=== PATIENT | female | born 1950 | race Caucasian/White ===

== ENCOUNTER → 2018-06-17 15:00 | Outpatient (CLI) | payer BC, SELFPAY | PROVIDERS: Visit Provider Obstetrics & Gynecology | DX: N89.8 Other specified noninflammatory disorders of vagina (principal) | CPT/HCPCS: 87070; 87205 ==

== ENCOUNTER → 2019-02-17 15:00 | Outpatient (CLI) | payer BC, SELFPAY ==
--- NOTE | 2019-02-17 15:03 | BI_ITS ---
MAMMOGRAPHY - BILATERAL SCREENING REASON FOR EXAM: Female, 68 years old. Routine annual screening examination. PERTINENT HISTORY: Non-contributory. TECHNIQUE: Digital bilateral breast marlena (3D mammographic acquisition) in the CC and MLO projections. 2-D mediolateral oblique (MLO) and craniocaudad (CC) views of both breasts were obtained. CAD: Full Field Digital Mammography with Computer Added Detection was performed. COMPARISON: Comparison is made with prior outside examination dated May 08, 2008. FINDINGS: Breast Composition: There are scattered areas of fibroglandular density. There are no dominant masses or suspicious calcifications. No other significant abnormalities are identified. There has been no significant change since the prior study. BI/SCREENING MAMM (CAD), BILAT IMPRESSION: Stable bilateral screening mammogram. Yearly follow-up mammogram recommended. (A) ASSESSMENT CATEGORY: BIRADS Category 1: Negative. A letter regarding these results will be sent to the patient by the facility within 30 days. Approximately 10% of breast cancers are not detected by mammography. A normal mammogram should not delay biopsy of a clinically suspicious abnormality. [id number] Electronically Signed: Gerardo Zavala, at 8:28 EDT , Service support ,
== END ==
PROVIDERS: Family Provider Family Medicine; PCP Family Medicine; Visit Provider Obstetrics & Gynecology
DX: Z12.31 Encounter for screening mammogram for malignant neoplasm of breast (principal)
CPT/HCPCS: 77063; 77067

== ENCOUNTER → 2019-10-09 09:17 | Outpatient (CLI) | payer BC, SELFPAY ==
[2019-10-09 09:15] VITALS: BMI 25.4
--- NOTE | 2019-10-09 09:18 | RAD_ITS ---
STUDY: X-RAY - RIGHT SHOULDER REASON FOR EXAM: Shoulder pain. TECHNIQUE: 4 view(s) of the shoulder. COMPARISON: None. FINDINGS: Normal glenohumeral articulation. There is mild acromioclavicular arthrosis. Normal acromion. Normal humeral head and visualized proximal humerus. The soft tissue structures are unremarkable. Normal visualized pulmonary apex. RAD/Shoulder min 2 Views IMPRESSION: Mild acromioclavicular arthrosis. Electronically Signed: Joshua Eid MD at 14:29 EST Tel , Service support ,
== END ==
PROVIDERS: Family Provider Family Medicine; PCP Family Medicine; Referring Provider Orthopaedic Surgery; Visit Provider Orthopaedic Surgery
DX: M25.511 Pain in right shoulder (principal)
CPT/HCPCS: 73030

== ENCOUNTER 2020-04-17 19:03 | Emergency (ER) | payer BC, SELFPAY ==
[2020-04-17 19:03] VITALS: BMI 22.8
[2020-04-17 19:07] VITALS: BP 161/90; PULSE 90; RESP 18; TEMP 35.6; O2SAT 96; BMI 28.6
[2020-04-17 19:14] VITALS: BP 161/90; PULSE 90; RESP 18; TEMP 35.6; O2SAT 96
--- NOTE | 2020-04-17 19:29 | EKG12_ITS ---
Test Reason : SYNCOPE Blood Pressure : / mmHG Vent. Rate : 088 BPM Atrial Rate : 088 BPM P-R Int : 192 ms QRS Dur : 084 ms QT Int : 358 ms P-R-T Axes : 072 048 027 degrees QTc Int : 433 ms Normal sinus rhythm Nonspecific ST and T wave abnormality Abnormal ECG Confirmed by PETRONA VILLAGRAN, JL ([id number]), editor book GOLDIE CHRISTIANSON ([id number]) on 04/22/2020 10:57:07 AM Referred By: MAURICIO Confirmed By:JL RUSS MD
--- NOTE | 2020-04-17 19:29 | RAD_ITS ---
STUDY: X-RAY - LEFT WRIST REASON FOR EXAM: Female, 70 years old. Fall, pain to palm of hand. TECHNIQUE: 3 view(s) of the wrist were obtained. COMPARISON: None. FINDINGS: There is a nondisplaced transverse fracture of the distal radial metaphysis. Normal radiocarpal articulation. Normal distal radioulnar articulation. Normal carpal bones. Normal carpal articulations. There are mild degenerative changes of the first metacarpal greater multangular joint. Normal second through fifth carpometacarpal articulations. Normal visualized metacarpal bones. The soft tissue structures are unremarkable. RAD/Wrist min 3 Views IMPRESSION: Nondisplaced transverse fracture of the distal radial metaphysis. Mild degenerative changes of the first metacarpal greater multangular joint. Electronically Signed: Rogelio Garcia MD at 21:50 EDT , Service support ,
--- NOTE | 2020-04-17 19:29 | CT_ITS ---
STUDY: CT BRAIN WITHOUT CONTRAST REASON FOR EXAM: Female, 70 years old. SYNCOPE RADIATION DOSAGE (If Supplied By Facility): CTDIvol = ( 60.81 ) mGy, DLP = ( 998.67 ) mGycm TECHNIQUE: Transaxial CT imaging of the brain was performed without administration of intravenous contrast material. Individualized dose optimization techniques were used for this CT. COMPARISON: Previous study of 01/19/2011 FINDINGS: Normal soft tissue structures. Normal calvarium. There is mild cerebral atrophy with widening of the extra-axial spaces and ventricular dilatation. There are areas of decreased attenuation within the white matter tracts of the supratentorial brain, consistent with microvascular disease changes. There is an old lacunar infarct of the right insular lobe, stable in the interval. Normal basal ganglia and thalami. Normal brainstem. Normal cerebellum. There is no intracranial hemorrhage. There are no findings of an acute ischemic infarction. Normal visualized paranasal sinuses. CT/Brain/Head without Contrast IMPRESSION: Chronic involutional changes of the brain. 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 There is no evidence of intracranial hemorrhage or acute infarct. Electronically Signed: Rogelio Garcia MD at 21:57 EDT , Service support ,
--- NOTE | 2020-04-17 19:35 | ED.VISSUMM ---
- ER Visit Summary Date of Service: 04/17/20 Chief Complaint: Fall History of Present Illness: The patient is a 70 F who presents after a fall that occurred today. Patient was in her exercise class when she fell. Patient states that after she fell she became dizzy and lightheaded. Patient does not think she hit her head. Patient does not think she had any loss of consciousness. Upon EMS arrival they noted the patient to be pale and diaphoretic. Patient states she is feeling better now. Patient still admits to some lightheadedness and dizziness. Patient denies any recent fevers or chills. Patient has been having some nausea and vomiting since she fell. Patient complains of pain over her left wrist. Patient denies any other injuries. Physical Examination: Vital signs are stable. Patient is afebrile. Patient is in no acute distress. Pupils are equal, round, and reactive to light bilaterally. Extraocular muscles are intact. There is no nystagmus noted. Conjunctiva is clear. Tympanic membranes are clear bilaterally. Neck is supple. Trachea is midline. There is no JVD. Heart was regular rate and rhythm. Lungs are clear and equal bilaterally. Abdomen is soft and nontender. Extremities are intact. There is tenderness over the left wrist. Radial pulses are equal bilaterally. Sensation was intact to light touch in the radial, median, and ulnar areas. Strength is 5/5 in the radial, median, and ulnar areas. Range of motion was slightly limited in all motions of the left wrist secondary to pain. Test Results: EKG showed normal sinus rhythm with a rate of 88. There are nonspecific ST-T wave changes. These were unchanged compared to previous EKG dated 12/18/2003. CT scan of the brain was obtained. There are chronic changes but no acute intracranial abnormality. This was interpreted by the radiologist and reviewed by myself. X-rays of the left wrist were obtained. There is nondisplaced fracture of the distal radius. These were also interpreted by the radiologist and reviewed by myself. CBC was normal. Basic metabolic profile showed a mild hypokalemia of 3.0. Urinalysis does not show any evidence of urinary tract infection. Troponin was normal. Orthostatic vital signs were normal. Emergency Department Course and Treatment: Patient was given IV fluids. Patient was given a dose of Zofran and meclizine here. Patient was feeling better on reevaluation. Patient was advised of her findings. Patient was given a dose of oral potassium here. Patient declined analgesics at this time. Patient also declined a prescription for analgesics. Patient was placed in a well-padded short arm volar splint. Neurovascular exam was intact prior to and after placing the patient in a volar splint. Patient was instructed to follow-up with her primary care physician in 5 to 7 days. Patient was also given a referral to Dr. Hardwick for orthopedic care. Patient was instructed to return if worse in any way. Patient understood and was agreeable with the plan. All questions were answered. Disposition: Discharge home Impression: 1. Left distal radius fracture 2. Dizziness, likely secondary to #1 This note was generated with [employer] dictation software. It may contain incorrect words, spelling, and punctuation that were not noted in review of the chart prior to signing ED Disposition - Plan for ED Patient: Disposition: Home or Assisted Living Diagnosis: Fracture of left distal radius, Dizziness Instructions: ED Forearm Fracture without Reduction Referrals: Amita Solano MD [Primary Care Provider] - 5-7 Days Erika Gong DO [STAFF PHYSICIAN] - 3-5 Days
[2020-04-17] MEDS: 0.9% Normal Saline 1,000 ML 1000 ML IV (19:37)
[2020-04-17] MEDS: Ondansetron 4 MG/2 ML Vial IV (19:37)
[2020-04-17 19:50] LABS: Basophil# 0.03 X10^3/uL; Basophil% 0.5 % (0-1); Eosinophil# 0.05 X10^3/uL; Eosinophils% 0.9 % (0-5); Hematocrit 38.5 % (37-47); Hemoglobin 12.9 g/dL (12.0-15.0); Lymphocyte % 53.7 % (19-41); Mean Corp Hgb Conc 33.5 g/dL (32-36); Mean Corpuscular Hgb 31.5 pg (27.0-32.0); Mean Corpuscular Volume 93.9 fL (81-99); Mean Platelet Vol. 10.2 fl (6.2-12.0); Monocyte# 0.59 X10^3/uL; Monocyte% 10.2 % (0-10); NRBC Flagged by Analyzer 0 % (0-5); Neutrophil # 1.97 X10^3/uL (2.7-7.7); Neutrophil % 34.2 % (47-70); Platelet Count 285 K/mm3 (150-450); RBC Distribution Width CV 12.2 % (11.6-14.6); White Blood Count 5.8 K/mm3 (4.4-11.0)
[2020-04-17] MEDS: Meclizine HCl 25 MG Tablet PO (19:53)
[2020-04-17 20:14] VITALS: BP 136/89; BP 140/67; BP 157/106; PULSE 88; PULSE 93
[2020-04-17 20:18] VITALS: BP 140/67; PULSE 93; RESP 16; TEMP 36.3; O2SAT 96
[2020-04-17 20:23] LABS: ALB/GLOB Ratio 1.2 RATIO (0.9-2.4); AST(SGOT) 22 U/L (15-37); Alanine Aminotransfer ALT/SGPT 23 U/L (13-56); Alkaline Phosphatase 59 U/L (45-117); Anion Gap 9 (5-15); BUN 14 mg/dL (7-18); BUN/Creat Ratio 20.1 RATIO (10-20); Calcium,Total 10.1 mg/dL (8.5-10.1); Chloride 105 mmol/L (98-107); EST Glomerular Filtration Rate 89 mL/min (>60); Est Glom Filt Rate - Afr Amer 107 mL/min (>60); Estimated Creatinine Clearance 40.07 ml/min; Globulin 3.3 g/dL (2.2-4.2); Glucose 123 mg/dL (74-106); Protein, Total 7.3 g/dL (6.4-8.2); Sodium Level 138 mmol/L (136-145)
[2020-04-17 21:27] LABS: Bacteria 0 SEEN /hpf (None Seen); Mucous, Urine 0 SEEN /hpf (<or=2+); Red Blood Cells-Urine 0 SEEN /hpf (0-5); Squamous Epithelial Cells - UA 0 SEEN /hpf (5-10); White Blood Cells 0 SEEN /hpf (0-5)
[2020-04-17 21:38] LABS: Color, Urine Straw (Yellow); Glucose, Dipstick Normal (Normal); Ketone-Dipstick 15 mg/dl (Negative); Leukocyte Esterase-Dipstick 25 /ul (Negative); Nitrite-Dipstick Negative (Negative); Occult Blood-Urine Negative /ul (Negative); Protein-Dipstick Negative (Negative); Urine Bilirubin Dipstick Negative (Negative); Urine Clarity Clear (Clear); Urine Urobilinogen Normal (Normal)
[2020-04-17 23:07] VITALS: BP 157/85; PULSE 72; PULSE 73; RESP 16; O2SAT 97
== END 2020-04-17 23:17 | disposition home or self-care (01) ==
PROVIDERS: Emergency Provider Emergency Medicine; PCP Family Medicine
DX: S52.502A Unspecified fracture of the lower end of left radius, initial encounter for closed fracture (principal); W19.XXXA Unspecified fall, initial encounter
CPT/HCPCS: 29125; 70450; 73110; 80053; 81001; 84484; 85025; 93005; 96361; 96374; 99285; J7030; J2405

== ENCOUNTER → 2020-04-24 08:36 | Outpatient (CLI) | payer BC, SELFPAY ==
[2020-04-19 08:01] VITALS: BMI 28.6
--- NOTE | 2020-04-24 08:36 | RAD_ITS ---
STUDY: X-RAY - LEFT WRIST REASON FOR EXAM: Female, 70 years old. POST CAST REMOVAL TECHNIQUE: 3 view(s) of the wrist were obtained. COMPARISON: 04/17/2020 FINDINGS: No significant interval change in the appearance of the previously noted fracture in the distal radius. Persistent fracture lucency and cortical irregularity noted suggesting complete osseous union has yet to occur. Alignment and positioning are unchanged from the previous study. Normal visualized distal ulna. Normal radiocarpal articulation. Normal distal radioulnar articulation. Normal carpal bones. Normal carpal articulations. Normal carpometacarpal articulation of the thumb. Normal second through fifth carpometacarpal articulations. Normal visualized metacarpal bones. The soft tissue structures are unremarkable. RAD/Wrist min 3 Views IMPRESSION: Previously described distal radial fracture is unchanged from the previous study. Continued follow-up recommended to assure osseous union Electronically Signed: Ganesh Rey MD at 9:01 EDT , Service support ,
== END ==
PROVIDERS: PCP Family Medicine; Referring Provider Orthopaedic Surgery; Visit Provider Orthopaedic Surgery
DX: S52.592A Other fractures of lower end of left radius, initial encounter for closed fracture (principal)
CPT/HCPCS: 73110

== ENCOUNTER → 2020-05-03 08:20 | Outpatient (CLI) | payer BC, SELFPAY ==
[2020-05-03 07:52] VITALS: BMI 28.6
--- NOTE | 2020-05-03 08:21 | RAD_ITS ---
STUDY: X-RAY - LEFT WRIST REASON FOR EXAM: Female, 70 years old. CAST REMOVAL TECHNIQUE: 3 view(s) of the wrist were obtained. COMPARISON: 04/17/2020. FINDINGS: Stable appearance of a subtle transverse fracture across the distal radial metaphysis. No definite new bone formation or definite interval healing. Fracture is in anatomic alignment and position. Otherwise normal visualized distal radius and ulna. Normal radiocarpal articulation. Normal distal radioulnar articulation. Normal carpal bones. Normal carpal articulations. There is mild degenerative arthrosis of the carpometacarpal articulation of the thumb. Normal second through fifth carpometacarpal articulations. Normal visualized metacarpal bones. The soft tissue structures are unremarkable. RAD/Wrist min 3 Views IMPRESSION: Stable appearance of a subtle transverse fracture across the distal radial metaphysis. Electronically Signed: Patrice Dumont MD at 16:55 EDT , Service support ,
== END ==
PROVIDERS: PCP Family Medicine; Referring Provider Orthopaedic Surgery; Visit Provider Orthopaedic Surgery
DX: S52.592A Other fractures of lower end of left radius, initial encounter for closed fracture (principal)
CPT/HCPCS: 73110

== ENCOUNTER → 2020-05-22 08:27 | Outpatient (CLI) | payer BC, SELFPAY ==
[2020-05-03 07:52] VITALS: BMI 28.6
--- NOTE | 2020-05-22 08:27 | RAD_ITS ---
STUDY: X-RAY - LEFT WRIST REASON FOR EXAM: Female, 70 years old. FX FOLLOW UP, CAST REMOVAL TECHNIQUE: 3 view(s) of the wrist were obtained. COMPARISON: 05/03/2020 FINDINGS: There is an old healed impacted fracture of the distal radius. Normal ulna Normal radiocarpal articulation. Normal distal radioulnar articulation. Normal carpal bones. Normal carpal articulations. Normal carpometacarpal articulation of the thumb. Normal second through fifth carpometacarpal articulations. Normal visualized metacarpal bones. The soft tissue structures are unremarkable. RAD/Wrist min 3 Views IMPRESSION: Old healed fracture of distal radial shaft Electronically Signed: Dany Almeida MD at 22:10 EDT , Service support ,
== END ==
PROVIDERS: PCP Family Medicine; Referring Provider Orthopaedic Surgery; Visit Provider Orthopaedic Surgery
DX: S52.592A Other fractures of lower end of left radius, initial encounter for closed fracture (principal)
CPT/HCPCS: 73110

== ENCOUNTER → 2022-04-10 | Outpatient (CLI) | payer BC, SELFPAY ==
--- NOTE | 2022-04-10 08:05 | MRI_ITS ---
STUDY: MRI BRAIN WITH AND WITHOUT CONTRAST (ATTENTION INTERNAL AUDITORY CANALS - I.A.C.''s) REASON FOR EXAM: Female, 72 years old. Asymmetric hearing loss on the right TECHNIQUE: Standardized multiplanar fat and water weighted pulse sequences were obtained. ml of 13ml Dotarem contrast material was administered intravenously for the contrast portion of the examination. COMPARISON: Head CT dated April 17, 2020 FINDINGS: Normal bilateral temporal bones. Normal bilateral internal auditory canals. There is no demonstrated intracanalicular or cisternal vestibular schwannoma (acoustic neuroma). There is no enhancement of the bilateral VIIth or VIIIth cranial nerves. Normal bilateral cochlea, vestibules and semicircular canals. Normal visualized mastoid air cells. No visualized cerebellar pontine angle mass or cyst. There is no evidence of a Mondini''s malformation. There is mild cerebral atrophy with widening of the extra-axial spaces and ventricular dilatation. There are a limited number of small white matter hyperintensities, distributed throughout the deep white matter tracts of the cerebral hemispheres, consistent with mild chronic white matter ischemic changes. There is no evidence for recent intracranial ischemia or other cause of cytotoxic edema on diffusion weighted imaging (DWI). Normal T2* images of the brain without demonstrated susceptibility artifact. There is no demonstrated hemosiderin stain. Prominent lentiform nucleus perivascular space on the right. Normal bilateral basal ganglia. Normal thalami. Normal flow voids within the major intracranial circulation suggesting patency by spin echo criteria. Normal venous enhancement. There is no enhancing intra-axial or extra-axial abnormality. There is no extra-axial fluid accumulation. Normal sella turcica, pituitary gland, infundibular stalk, optic chiasm and hypothalamus. Normal tectal plate and pineal gland. Normal midbrain, tom and medulla. Normal cerebellum. Normal basal cisterns. No demonstrated orbital abnormality, within the constraints of a routine brain study. Normal visualized paranasal sinuses. Normal calvarium and skull base. Normal visualized soft tissue structures. Normal visualized upper cervical spine. MRI/Brain W/WO Contrast IMPRESSION: 1. Normal unenhanced and enhanced MRI of the bilateral internal auditory canals (I.A.C''s). 2. Involutional changes of the brain, as described above. Electronically Signed: Marvel John MD at 14:49 EDT ,
[2022-04-10 14:41] LABS: CREATININE FINGERSTICK < 0.9 mg/dL (0.55-1.02); EGFR FINGERSTICK > 60.0000 mL/min (>60)
== END | disposition home or self-care (01) ==
PROVIDERS: PCP Family Medicine; Referring Provider Otolaryngology; Visit Provider Otolaryngology
DX: H90.3 Sensorineural hearing loss, bilateral (principal)
CPT/HCPCS: 70553; A9575

== ENCOUNTER 2022-04-17 10:30 | Outpatient (RCR) | payer BC, SELFPAY ==
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
--- NOTE | 2022-07-14 12:37 | HP.PT.NRP ---
CLEVELAND BURR was seen in my office for initial evaluation on 03/27/22. The following Plan of Care was established for this patient: Initial Frequency: 1x/Week Initial Duration: 6 Weeks Patient/Client Instruction: Educate patient on: Condition, Plan of Care, Risk Factors For the Purpose of:: To improve self management Therapeutic Exercise to Include: Strength training, Flexibilty training, Neuromotor development, Dynamic Lumbar Stabilization For the Purpose of:: To decrease pain, To increase ROM, To improve muscle performance and motor function, To increase tolerance to activity/condition/position, To improve ability of physical actions for home/community/work/leisure, To improve gait and locomotor functions This patient was last seen in our office 04/17/22. Pertinent comments regarding their Physical therapy will appear below: This patient has not returned to Physical Therapy and is appropriate to return to MD for further follow-up as needed. At this point I will be discontinuing this patient from physical therapy. I would be happy to see this patient again in the future if found appropriate by the physician. Thank you! Kandi Pickering, PT, Cert MDT Balance/Gait/Functional tests - Balance/Special Test Scores Lower Extremity Functional Score: 69
== END 2022-04-17 19:00 | disposition home or self-care (01) ==
LOC: PT 10:30
PROVIDERS: PCP Family Medicine; Visit Provider Orthopaedic Surgery
DX: M16.11 Unilateral primary osteoarthritis, right hip (principal); T84.84XD Pain due to internal orthopedic prosthetic devices, implants and grafts, subsequent encounter; X58.XXXD Exposure to other specified factors, subsequent encounter; Z96.642 Presence of left artificial hip joint
CPT/HCPCS: 97162; 97530

== ENCOUNTER → 2023-02-19 | Outpatient (CLI) | payer BC, SELFPAY ==
--- NOTE | 2023-02-19 09:10 | BI_ITS ---
MAMMOGRAPHY - BILATERAL SCREENING REASON FOR EXAM: Female, 72 years old. Routine annual screening examination. PERTINENT HISTORY: Non-contributory. TECHNIQUE: Digital bilateral breast jerrell (3D mammographic acquisition) in the CC and MLO projections. 2-D mediolateral oblique (MLO) and craniocaudad (CC) views of both breasts were obtained. CAD: Full Field Digital Mammography with Computer Added Detection was performed. COMPARISON: Comparison is made with prior study February 17, 2019. FINDINGS: Breast Composition: There are scattered areas of fibroglandular density. There are no dominant masses or suspicious calcifications. Stable small benign-appearing bilateral axillary lymph nodes. No other significant abnormalities are identified. There has been no significant change since the prior study. BI/SCRN MAMM (CAD)W/JERRELL BILAT IMPRESSION: Stable bilateral screening mammogram. Yearly follow-up mammogram recommended. (A) ASSESSMENT CATEGORY: BIRADS Category 2: Benign. A letter regarding these results will be sent to the patient by the facility within 30 days. Approximately 10% of breast cancers are not detected by mammography. A normal mammogram should not delay biopsy of a clinically suspicious abnormality. [id number] Electronically Signed: Gerardo Zavala MD at 10:08 EDT ,
== END | disposition home or self-care (01) ==
LOC: OPBI 09:05
PROVIDERS: PCP Family Medicine; Referring Provider Family Medicine; Visit Provider Family Medicine
DX: Z12.31 Encounter for screening mammogram for malignant neoplasm of breast (principal)
CPT/HCPCS: 77063; 77067

== ENCOUNTER 2023-12-03 09:29 | Observation (INO) | payer BC, SELFPAY ==
[2023-12-03] VITALS (9 sets, daily range): BP systolic 125–161; BP diastolic 64–95; PULSE 72–83; RESP 12–16; TEMP 36.1–36.8; O2SAT 93–100; BMI 26.4
--- NOTE | 2023-12-03 09:49 | CT_ITS ---
EXAM: CT HEAD WITHOUT INTRAVENOUS CONTRAST CLINICAL INDICATION: dizziness TECHNIQUE: Multiple axial images were obtained of the head without intravenous contrast. This CT exam was performed using one or more of the following dose reduction techniques: automated exposure control, adjustment of the mA and/or kV according to patient size, and/or use of iterative reconstruction technique. COMPARISON: CT Head dated 04/17/2020 FINDINGS: BRAIN AND EXTRA-AXIAL SPACES: Hypodensity inferior to the right basal ganglia again noted consistent with old lacunar infarct or prominent perivascular space. Brain attenuation is otherwise unremarkable. No intra- or extra-axial hemorrhage. No acute infarct. No intracranial mass or mass effect. There is preservation of the moreno/white matter interface. Posterior fossa structures are unremarkable. Mild prominence of the cortical sulci and ventricles related to volume loss change. Basal cisterns are patent. BONES/JOINTS: Normal calvarium. SINUSES: No acute sinusitis. MASTOID AIR CELLS: Normal. Clear. CT/Brain/Head without Contrast IMPRESSION: 1. No acute intracranial abnormality. 2. Stable mild senescent changes. Electronically Signed: Chandan Ugalde MD at 10:45 EST ,
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
[2023-12-03] MEDS: Ondansetron 4 MG/2 ML Vial IV ×2 (09:55→11:42)
[2023-12-03] MEDS: Lorazepam 2 MG/ML WCH Syringe 1 MG IV (09:59)
[2023-12-03 10:15] LABS: Absolute Lymphocyte Count 2.36 X10^3/uL (0.83-4.51); Absolute Neutrophil Count 1.9 X10^3/uL (2.0-7.7); Basophil# 0.04 X10^3/uL; Basophil% 0.8 % (0-1); Eosinophil# 0.02 X10^3/uL; Eosinophils% 0.4 % (0-5); Hematocrit 37.9 % (37-47); Hemoglobin 12.8 g/dL (12.0-15.0); Lymphocyte # 2.36 X10^3/ul (0.83-4.51); Lymphocyte % 47.6 % (19-41); Mean Corp Hgb Conc 33.8 g/dL (32-36); Mean Corpuscular Volume 91.8 fL (81-99); Mean Platelet Vol. 9.8 fl (6.2-12.0); Monocyte# 0.67 X10^3/uL; Monocyte% 13.5 % (0-10); NRBC Flagged by Analyzer 0 % (0-5); Neutrophil # 1.86 X10^3/uL (2.7-7.7); Neutrophil % 37.5 % (47-70); Platelet Count 284 K/mm3 (150-450); RBC Distribution Width CV 12.2 % (11.6-14.6); Red Blood Count 4.13 M/mm3 (4.2-5.4)
[2023-12-03 10:21] LABS: Anion Gap 6 (5-15); BUN 16 mg/dL (7-18); Calcium,Total 10.4 mg/dL (8.5-10.1); Chloride 107 mmol/L (98-107); Creatinine, Serum 0.76 mg/dL (0.55-1.02); EST Glomerular Filtration Rate 79 mL/min (>60); Est Glom Filt Rate - Afr Amer 96 mL/min (>60); Estimated Creatinine Clearance 54.27 ml/min; Glucose 127 mg/dL (74-106); Potassium 3.2 mmol/L (3.5-5.1); Sodium Level 137 mmol/L (136-145)
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
--- NOTE | 2023-12-03 11:47 | NURSING ---
DR CHAS GOMEZ
--- NOTE | 2023-12-03 11:55 | NURSING ---
PCU KORAM VERTIGO, UNABLE TO WALK, VOMITING
--- NOTE | 2023-12-03 12:38 | MRI_ITS ---
EXAM: MR HEAD WITHOUT INTRAVENOUS CONTRAST CLINICAL INDICATION: vertigo TECHNIQUE: Multiplanar and multisequence MR images of the brain were obtained without intravenous contrast. COMPARISON: CT brain 12/03/2023, MR Head dated 04/10/2022 FINDINGS: BRAIN AND EXTRA-AXIAL SPACES: Stable 5 mm cystic space inferior to the right basal ganglion likely representing prominent perivascular space. Mild decreased T2 signal intensity within the cerebral white matter suggestive of chronic microvascular change. No intra- or extra-axial hemorrhage. No evidence of acute infarct. No intracranial mass or mass effect. There is preservation of the moreno/white matter interface. Posterior fossa structures are unremarkable. Basal cisterns are patent. SELLA: Normal. Normal sella turcica, pituitary gland, infundibular stalk, optic chiasm and hypothalamus. AUDITORY SYSTEM: Normal. The internal auditory canals are patent. BONES/JOINTS: Intact calvarium. SINUSES: Unremarkable as visualized. Clear. MASTOID AIR CELLS: Unremarkable as visualized. Clear. ORBITS: Unremarkable as visualized. Both globes, extraocular muscles, optic nerves and retrobulbar fat appear unremarkable. VASCULATURE: Unremarkable as visualized. Normal flow voids in the major intracranial circulation. MRI/Brain without Contrast IMPRESSION: No acute intracranial abnormality. No interval change Electronically Signed: Chandan Ugalde MD at 15:16 EST ,
[2023-12-03] MEDS: Potassium Chloride Oral Tablet 20 MEQ 40 MEQ PO (15:38)
--- NOTE | 2023-12-03 16:04 | ECHOD_ITS ---
Reason For Study: TIA/CVA Procedure This was a 2D Doppler, Color Flow transthoracic echocardiogram. Exam performed portable in patient room. Left Ventricle Normal LV size. The estimated ejection fraction is 65 %. No evidence for diastolic dysfunction. No regional wall motion abnormalities noted. Right Ventricle Normal RV size. Normal systolic function. Atria Normal left atrium. Normal right atrium. No doppler evidence for ASD. Bubble contrast study negative for right to left interatrial shunt. Mitral Valve There is no mitral valve stenosis. Trivial mitral valve insufficiency. Tricuspid Valve There is no tricuspid stenosis. Mild tricuspid valve insufficiency. Pulmonary artery systolic pressure is 25 mmHg. Aortic Valve Trisinus/trileaflet aortic valve. There is no aortic stenosis. Trivial aortic valve insufficiency. Pulmonic Valve There is no pulmonic valvular stenosis. Trivial pulmonic valve insufficiency. Great Vessels Normal aortic root. Pericardium/Pleural No pericardial effusion. Medication Performed a rapid injection of agitated mix of 9 cc saline and 1cc air to assess for atrial septal defect. MMode/2D Measurements & Calculations LVIDd: 4.1 cm IVSd: 1.0 cm Ao root diam: 3.4 cm LVIDs: 2.5 cm LVPWd: 0.97 cm RVDd: 2.4 cm FS: 38.6 % LAV(MOD-bp): 34.0 ml LVAd ap4: 16.9 cm2 SV(MOD-sp4): 28.6 ml LAV(MOD-bp) Indexed: 21.0 ml/m2 LVLd ap4: 5.4 cm LAV(MOD-sp2): 35.0 ml EDV(MOD-sp4): 43.1 ml LAV(MOD-sp4): 33.1 ml EDV(sp4-el): 44.9 ml LVAs ap4: 8.8 cm2 LVLs ap4: 4.5 cm ESV(MOD-sp4): 14.5 ml ESV(sp4-el): 14.5 ml EF(MOD-sp4): 66.3 % EF(sp4-el): 67.8 % SV(sp4-el): 30.5 ml LA A4 area: 13.3 cm2 LA dimension(2D): 3.3 cm RA A4 area: 12.0 cm2 TAPSE: 2.0 cm Time Measurements MV dec time: 0.23 sec Doppler Measurements & Calculations MV E max christopher: 54.4 cm/sec Lat Peak E' Christopher: 11.2 cm/sec Med Peak E' Christopher: 6.5 cm/sec MV A max christopher: 63.9 cm/sec E/E' lat: 4.9 E/E' med: 8.3 MV E/A: 0.85 MV dec slope: 231.5 cm/sec2 Ao V2 max: 112.1 cm/sec LV V1 max: 88.5 cm/sec Ao max P.0 mmHg LV V1 max P.1 mmHg Ao V2 mean: 85.0 cm/sec Ao mean P.0 mmHg Ao V2 VTI: 22.3 cm PA V2 max: 73.6 cm/sec PI end-d christopher: 87.5 cm/sec TR max christopher: 234.3 cm/sec TR max P.0 mmHg ECHO/Echo Complete Interpretation Summary The estimated ejection fraction is 65 %. No evidence for diastolic dysfunction. Trivial mitral valve insufficiency. Trivial aortic valve insufficiency. Ordering Physician: Betty Olson Referring Physician: Amita Solano Performed By: Lorraine Saez, SHAUN, RVT
--- NOTE | 2023-12-03 16:05 | CHAPLAIN ---
Type of Pastoral Visit _x__ Initial Visit ___ Follow-up Visit ___ On-call Visit ___ General Patient Visit ___ Spiritual Assessment ___ Family Conference ___ Bereavement ___ Rapid Response ___ Code Blue ___ Other (describe below) Pastoral Care Referral From _x__ Patient ___ Family ___ Nurse ___ Physician ___ Sausage Machine Operator ___ Communication Equipment Mechanic ___ Other (describe below) Sacrament/Intervention ___ Active listening ___ Anointing ___ Presybeterian ___ Bereavement ___ Communion ___ Lata exploration ___ ___ Life review ___ Prayer ___ Reconciliation ___ Sacrament of Sick _x__ Supportive presence ___ Wedding ___ Other (describe below) Pastoral Comments patient was out of the room for testing but spouse was in the room waiting; offer of support to spouse who gives the details of situation and his statement of thankfulness that she is getting some things checked; offer of support given to spouse who says that he is doing fine and believes that his is handling this well enough
[2023-12-04 04:02] VITALS: BP 122/60; PULSE 73; RESP 16; TEMP 36.8; O2SAT 96
--- NOTE | 2023-12-04 04:09 | NURSING ---
Computer wasn't signed out properly. Didn't realize dayshift RN's name was still on it, vital signs documented on December 03, 2023 at 23:17 was under Jo Ramsey's name so I documented another one under my name.
[2023-12-04 07:52] LABS: Absolute Lymphocyte Count 1.96 X10^3/uL (0.83-4.51); Absolute Neutrophil Count 2.6 X10^3/uL (2.0-7.7); Basophil# 0.03 X10^3/uL; Basophil% 0.6 % (0-1); Eosinophil# 0.04 X10^3/uL; Eosinophils% 0.8 % (0-5); Hematocrit 37.7 % (37-47); Hemoglobin 12.4 g/dL (12.0-15.0); Lymphocyte # 1.96 X10^3/ul (0.83-4.51); Lymphocyte % 37.3 % (19-41); Mean Corp Hgb Conc 32.9 g/dL (32-36); Mean Corpuscular Hgb 30.8 pg (27.0-32.0); Mean Corpuscular Volume 93.8 fL (81-99); Mean Platelet Vol. 10.1 fl (6.2-12.0); Monocyte# 0.66 X10^3/uL; Monocyte% 12.5 % (0-10); NRBC Flagged by Analyzer 0 % (0-5); Neutrophil # 2.56 X10^3/uL (2.7-7.7); Neutrophil % 48.6 % (47-70); Platelet Count 280 K/mm3 (150-450); RBC Distribution Width CV 12.3 % (11.6-14.6); RBC Distribution Width SD 42.7 fl (35.1-43.9); Red Blood Count 4.02 M/mm3 (4.2-5.4); White Blood Count 5.3 K/mm3 (4.4-11.0)
[2023-12-04 07:53] VITALS: O2SAT 94
[2023-12-04 08:07] VITALS: BP 125/66; PULSE 72; RESP 16; TEMP 36.9; O2SAT 96
[2023-12-04] MEDS: Multivitamins,Therapeutic Tablet 1 TABLET PO (08:09)
[2023-12-04] MEDS: hydroCHLOROthiazide 12.5mg 12.5 MG PO (08:09)
[2023-12-04] MEDS: Famotidine 20 MG Tablet 40 MG PO (08:09)
[2023-12-04] MEDS: Enoxaparin 40 MG/0.4 ML Syringe SC (08:10)
[2023-12-04 08:20] LABS: Anion Gap 3 (5-15); BUN 13 mg/dL (7-18); BUN/Creat Ratio 22.3 RATIO (10-20); Calcium,Total 10.2 mg/dL (8.5-10.1); Chloride 109 mmol/L (98-107); Cholesterol 202 mg/dL (200); Creatinine, Serum 0.58 mg/dL (0.55-1.02); EST Glomerular Filtration Rate 108 mL/min (>60); Est Glom Filt Rate - Afr Amer 131 mL/min (>60); Estimated Creatinine Clearance 54.59 ml/min; Glucose 84 mg/dL (74-106); High Density Lipoprotein 67 mg/dL; Sodium Level 138 mmol/L (136-145); Triglycerides 54 mg/dL; Very Low Density Lipoprotein 11 mg/dL (5-40)
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
[2023-12-04 14:16] VITALS: BP 125/76; PULSE 85; RESP 16; TEMP 37.1; O2SAT 99
--- NOTE | 2023-12-04 14:16 | DS.PCM_ITS ---
Providers Date of Admission: 12/03/23 Date of Discharge: 12/04/23 Primary Care Physician: Dr. Amita Solano MD Consultations 12/03/23 16:50 Consult: Tele-Neurology Routine Consulting Provider: [facility] Reason for Consult: dizziness and vertigo EMERGENT Consult: No MD Notified: Yes Date Notified: 12/03/23 Time Notified: 16:50 Method of Notification: Answering Service Nursing Unit Staff Notify [facility] of Tele-Neurology Consult: Yes Reason For Visit: VERTIGO Diagnosis Discharge Diagnosis (1) Vertigo: Status: Acute Code(s): R42 - Dizziness and giddiness Plan #Vertigo to r/o stroke * Admit to PCU * CT of the brain showed no acute intracranial pathology. * get MRI of the brain and 2D echo * monitor NIHSS * PT.OT consult * fall precautions * hold BP meds until stroke ruled out * #Hypokalemia: K is 3.2. Will replace and trend #Hypertension: hold home HCTZ until stroke ruled out. DVT prophylaxis; SCDs Code status: full code * Patient counseled extensively about different types of CODE STATUS including full code, DNR CCA and DNR CCA. Patient elects to be full code. * Total [id number]-[id number] time 17 minutes. Medications at Discharge Home Medications biotin 1 mg tablet 1 mg PO DAILY 07/10/22 multivitamin 1 tab PO DAILY 07/10/22 clobetasol 0.05 % topical ointment 1 applic topical .COMPLEX PRN lichen sclerosis #45 grams 11/16/23 famotidine 40 mg tablet 40 mg PO DAILY 12/03/23 hydrochlorothiazide 12.5 mg tablet 12.5 mg PO DAILY 12/03/23 meclizine 25 mg tablet 25 mg PO TID PRN PRN Vertigo #30 tabs 12/04/23 Hospital Course Operations None Procedures 2-D Echocardiogram Summary of Care Provided Minutes Spent on Discharge: 45 Hospital Course: CLEVELAND BURR, is a 73 F with a PMH as outlined who presents vi the ED on 12/03/2023 with a complaint of dizziness. It started suddenly this morning, at around 8:45am. She had associated nausea and vomiting and felt like everything was spinning around. She denied any falls, and any focal weakness or tingling. She denies any recent URTI symptoms. She denies any history of such vertigo; she says she has a history of a blocked ear for which she sees ENT. SHe was ac tually supposed to see ENT today, but was unable to due to her current symptoms. Review of symptoms otherwise negative. Vitals in the ED with temperature of 96.9 Fahrenheit with pulse rate of 83 and blood pressure 158/88. Also close 99% on room air. CBC was unremarkable and BMP was significant for potassium of 3.2 and calcium of 10.4. CT of the brain showed no acute intracranial pathology. She was admitted to be managed for vertigo to rule out a stroke. She had an MRI of the brain which was negative for any evidence of stroke. She had 2D echo done which showed estimated EF of 65% with no evidence of diastolic dysfunction and trivial mitral valve and aortic valve insufficiency. Neurology was consulted and reviewed patient and thought it was likely in any ear pathology and not a stroke which had been ruled out by MRI. Patient had been started on meclizine upon admission and plan was for her to be discharged on meclizine and to have vestibular rehab and follow-up with ENT on outpatient basis. Patient was seen and examined prior to discharge. She felt well and had no active complaints. Review of systems otherwise negative. Labs and vitals reviewed. Home medication reviewed and reconciled. Physical Exam Const alert, oriented x3 and no apparent distress Constitutional Narrative: looks much better today General Appearance: cooperative and comfortable HEENT normocephalic, head/scalp atraumatic, hearing grossly normal bilaterally, moist oral mucous membranes and oropharynx normal Mouth: oral and palatal mucosa normal Eyes PERRL and EOMs intact bilaterally Neck no lymphadenopathy and supple Lymph Lymphatic: no lymphadenopathy noted and no lymphedema noted Resp normal respiratory effort, normal air movement and clear to auscultation bilaterally Cardio regular rate, regular rhythm, S1 normal heart sound, S2 normal heart sound and n o murmurs GI normal to inspection, nondistended, normoactive bowel sounds, soft to palpation, non-tender and non-distended Extremity normal to inspection, full ROM, normal capillary refill, no clubbing, cyanosis or edema and no calf tenderness General Extremity: no tenderness to palpation of joints or extremities Skin no rashes or lesions noted General Skin Exam: no breakdown Neuro oriented x3, CN's II-XII intact bilaterally, moves all extremities, no focal motor deficits, no sensory deficits noted and deep tendon reflexes 2+ bilaterally Sensorium / Orientation: awake Motor Exam: strength 5/5 throughout and general weakness Psych thought process normal and cooperative Mood & Affect: flat affect Weight / BMI Weight Weight: 141 lb 12.116 oz Body Mass Index (BMI) 26.4 ABG / Lab / Microbiology Data 12/04/23 06:37 12/04/23 06:37 Laboratory: Laboratory Results - last 24 hr 12/04/23 06:37: WBC 5.3, RBC 4.02 L, Hgb 12.4, Hct 37.7, MCV 93.8, MCH 30.8, MCHC 32.9, RDW Std Deviation 42.7, RDW Coeff of Nohemy 12.3, Plt Count 280, MPV 10.1, Immature Gran % (Auto) 0.200, Neut % (Auto) 48.6, Lymph % (Auto) 37.3, [place] % (Auto) 12.5 H, Eos % (Auto) 0.8, Baso % (Auto) 0.6, Absolute Neuts (auto) 2.6, Absolute Lymphs (auto) 1.96, Nucleated RBC % 0, Sodium 138, Potassium 4.0, Chloride 109 H, Carbon Dioxide 26.0, Anion Gap 3 L, BUN 13, Creatinine 0.58, Estim Creat Clear Calc 54.59, Est GFR (MDRD) Af Amer 131, Est GFR (MDRD) Non-Af 108, BUN/Creatinine Ratio 22.3 H, Glucose 84, Calcium 10.2 H, Triglycerides 54, Cholesterol 202 H, LDL Cholesterol 124, VLDL Cholesterol 11, HDL Cholesterol 67 Radiography Diagnostic Testing: Radiology Impression Brain MRI 12/03/23 12:38 IMPRESSION: No acute intracranial abnormality. No interval change Electronically Signed: Chandan Ugalde MD at 15:16 EST , Echocardiogram 12/03/23 16:04 Interpretation Summary The estimated ejection fraction is 65 %. No evidence for diastolic dysfunction. Trivial mitral valve insufficiency. Trivial aortic valve insufficiency. Ordering Physician: Betty Olson Referring Physician: Amita Solano Performed By: Lorraine Saez, SHAUN, RVT D/C Instructions Discharge Diet: Low fat / Low cholesterol Discharge Activity: Return to Normal Activity Weight Bearing Status: Weight bearing as tolerated Call your doctor if you observe: Fever of 101 or Higher, Shortness of breath, Dizziness, Swelling in the ankles and Chest pain Meaningful Use Info Meaningful Use Diagnoses (Choose all that apply): None applicable Discharge Plan Admission Admit Date/Time: 12/03/23 11:49 Primary Reason for Your Visit: vertigo Attending Provider: Betty Olson Primary Care Provider: Amita Solano Consulting Providers: Alli Avalos; Earle Mobley; Nerissa Alberto; Indigo Sauceda; Miri Fung; Brendon Kennedy; Rosemarie Frederick; Marcelino Tucker; Mario Allen; Ade Sin; Basil Dela Cruz; Diane Bragg; Rafi Harmon; Yara Pulliam; Dimitrios Jasmine; Zhane Taylor; James Rubio; Anamika Hendricks; Pascale Mae Instructions Patient Instructions: ED Vertigo, Unspecified Additional Instructions / Restrictions: follow up with your ENT surgeon on outpatient basis within 1-2 weeks. Discharge Orders/Prescriptions Prescriptions: New meclizine 25 mg Tablet 25 mg PO TID PRN PRN (Reason: Vertigo) Qty: 30 1RF Continued multivitamin Tablet 1 tab PO DAILY biotin 1 mg tablet 1 mg PO DAILY clobetasol 0.05 % ointment 1 applic TOPICAL .COMPLEX PRN (Reason: lichen sclerosis) Qty: 45 4RF Rx Instructions: 1 applic topical twice a week prn PRN; hydrochlorothiazide 12.5 mg tablet 12.5 mg PO DAILY Patient Comments: TAKE 1 TABLET BY MOUTH EVERY DAY famotidine 40 mg tablet 40 mg PO DAILY Patient Comments: TAKE 1 TABLET BY MOUTH EVERY DAY Referrals / Follow Up: Amita Solano MD [Primary Care Provider] - Within 2 Weeks Disposition Disposition (needs filled in before D/C Order can be placed): Home, Self Care Charges/Coding Visit Charges Inpatient E&M: 20130 Disch Hosp >30min
--- NOTE | 2023-12-04 14:32 | NURSING ---
PIV removed. Discharge paperwork given and reviewed with pt and . Pt leaving the unit with all belongings and questions answered.
== END 2023-12-04 14:16 | disposition home or self-care (01) ==
LOC: ED 11:52 → PCU 12:04
PROVIDERS: Admitting Provider Student in an Organized Health Care Education/Training Program; Emergency Provider Emergency Medicine; PCP Family Medicine; Visit Provider Student in an Organized Health Care Education/Training Program
DX: R42 Dizziness and giddiness (principal); R11.2 Nausea with vomiting, unspecified; E87.6 Hypokalemia; I10 Essential (primary) hypertension; H93.19 Tinnitus, unspecified ear; I08.1 Rheumatic disorders of both mitral and tricuspid valves
CPT/HCPCS: 36415; 70450; 70551; 80048; 80061; 85025; 93306; 94762; 96372; 96374; 96375; 96376; 99221; 99252; 99283; A4216; G0378; G0463; J2405

== ENCOUNTER → 2024-02-21 | Outpatient (CLI) | payer BC, SELFPAY ==
[2024-02-21 14:22] LABS: Hematocrit 39.1 % (37-47); Mean Corp Hgb Conc 33.2 g/dL (32-36); Mean Corpuscular Hgb 31.3 pg (27.0-32.0); Mean Platelet Vol. 9.6 fl (6.2-12.0); Platelet Count 321 K/mm3 (150-450); RBC Distribution Width CV 12.3 % (11.6-14.6); RBC Distribution Width SD 42.4 fl (35.1-43.9); Red Blood Count 4.16 M/mm3 (4.2-5.4); White Blood Count 6.5 K/mm3 (4.4-11.0)
[2024-02-21 14:37] LABS: International Normalized Ratio 1.1; Partial Thromboplast Time 28.1 Seconds (24.1-36.2); Prothrombin Time (Protime)PT. 14.2 SECONDS (11.7-14.9)
[2024-02-21 15:17] LABS: Anion Gap 3 (5-15); BUN 15 mg/dL (7-18); BUN/Creat Ratio 19.1 RATIO (10-20); Calcium,Total 11.4 mg/dL (8.5-10.1); Chloride 104 mmol/L (98-107); Creatinine, Serum 0.79 mg/dL (0.55-1.02); EST Glomerular Filtration Rate 76 mL/min (>60); Est Glom Filt Rate - Afr Amer 92 mL/min (>60); Glucose 98 mg/dL (74-106); Potassium 3.9 mmol/L (3.5-5.1); Sodium Level 138 mmol/L (136-145)
== END | disposition home or self-care (01) ==
LOC: LAB 13:22
PROVIDERS: PCP Family Medicine
DX: Z01.818 Encounter for other preprocedural examination (principal)
CPT/HCPCS: 36415; 80048; 85027; 85610; 85730

== ENCOUNTER → 2024-09-15 | Outpatient (CLI) | payer BC, SELFPAY ==
--- NOTE | 2024-09-15 13:40 | BI_ITS ---
MAMMOGRAPHY - BILATERAL SCREENING REASON FOR EXAM: Female, 74 years old. Routine annual screening examination. PERTINENT HISTORY: Non-contributory. TECHNIQUE: Digital bilateral breast jerrell (3D mammographic acquisition) in the CC and MLO projections. 2-D mediolateral oblique (MLO) and craniocaudad (CC) views of both breasts were obtained. CAD: Full Field Digital Mammography with Computer Added Detection was performed. COMPARISON: Comparison is made with prior study dated February 19, 2023 and February 17, 2019. FINDINGS: Breast Composition: There are scattered areas of fibroglandular density. There are no dominant masses or suspicious calcifications. Stable small bilateral axillary lymph nodes. No other significant abnormalities are identified. There has been no significant change since the prior study. BI/SCRN MAMM (CAD)W/JERERLL BILAT IMPRESSION: Stable bilateral screening mammogram. Yearly follow-up mammogram recommended. (A) ASSESSMENT CATEGORY: BIRADS Category 2: Benign. A letter regarding these results will be sent to the patient by the facility within 30 days. Approximately 10% of breast cancers are not detected by mammography. A normal mammogram should not delay biopsy of a clinically suspicious abnormality. [id number] Electronically Signed: Gerardo Zavala MD at 14:18 EST ,
== END | disposition home or self-care (01) ==
LOC: OPBI 13:39
PROVIDERS: PCP Family Medicine; Referring Provider Family Medicine; Visit Provider Family Medicine
DX: Z12.31 Encounter for screening mammogram for malignant neoplasm of breast (principal)
CPT/HCPCS: 77063; 77067

== ENCOUNTER → 2025-10-01 | Outpatient (CLI) | payer BC, MEDICARE, SELFPAY ==
--- NOTE | 2025-10-01 09:00 | RAD_ITS ---
PROCEDURE: LUMBAR SPINE 2 OR 3 VIEWS 10/01/2025 REASON FOR EXAM: NEW ONSET SCIATICA TECHNIQUE: Procedure Code: RADSPLL Modality: DX Procedure: LUMBAR SPINE 2 OR 3 VIEWS COMPARISON: None available. FINDINGS: The lumbar lordosis is mildly exaggerated. Grade 1 L1-L2 and L2-L3 retrolisthesis. The vertebral bodies are normal in height. Intervertebral disc space height loss at L5-S1. Anterior osteophytes. Facet arthrosis most prominent at L5-S1. The visualized sacroiliac joints are within normal limits. Degenerative changes of the right hip joint. RAD/Lumbar Spine 2 or 3 Views IMPRESSION: Grade 1 L1-L2 and L2-L3 retrolisthesis. Degenerative changes in the lumbar spi ne. Reading Location: [id number]
--- NOTE | 2025-10-01 09:00 | RAD_ITS ---
PROCEDURE: HIP, UNI W/ PELVIS 2-3 VIEWS 10/01/2025 REASON FOR EXAM: RIGHT HIP PAIN, TECHNIQUE: Procedure Code: [facility] Modality: DX Procedure: HIP, UNI W/ PELVIS 2-3 VIEWS COMPARISON: Single-view 02/07/2025 pelvis radiograph. FINDINGS: Mild left hip arthrosis with marginal osseous ridging again identified. Proximal left femoral nail again identified. Moderate right hip arthrosis with marginal osseous ridging, joint space narrowing and periarticular sclerosis, slightly more severe than previous. No definite SI joint abnormality. Mild osseous fullness in the right anterior femoral head/neck junction again identified, possibly predisposing to cam impingement. Visualized bowel pattern is normal. RAD/HIP, UNI W/ Pelvis 2-3 Views IMPRESSION: Slightly more severe right hip arthrosis compared to previous. Otherwise unchanged findings as described. Reading Location: [facility]
== END | disposition home or self-care (01) ==
LOC: MTRAD 08:56
PROVIDERS: PCP Family Medicine; Referring Provider Family Medicine; Visit Provider Family Medicine
DX: M16.11 Unilateral primary osteoarthritis, right hip (principal); M54.31 Sciatica, right side
CPT/HCPCS: 72100; 73502